=== PATIENT | male | born 1990 | race Caucasian/White ===

== ENCOUNTER 2020-09-25 20:47 | Emergency (ER) | payer SELFPAY ==
[~2020-09-25] VITALS: Ht 177.8 cm; Wt 75.0 kg
[2020-09-25] MEDS ORDERED: ONDANSETRON HCL 4MG/2ML INJ IV STA (22:48)
[2020-09-25] MEDS ORDERED: MORPHINE SULFATE 4 MG/ML CPJ (NOT FOR IM USE) IV STA (22:48)
[2020-09-25] MEDS ORDERED: SODIUM CHLORIDE 0.9% 1,000 ML IV ONE (23:00)
[2020-09-25 23:15] LABS: BASOPHILS % 0.5 % (0.0-2.0); EOSINOPHILS % 0.2 % (0.0-5.0); HEMATOCRIT. 46.1 % (42.0-52.0); HEMOGLOBIN. 16.3 g/dL (14.0-18.0); LYMPHOCYTES % 11.3 % (20.0-50.0); MEAN CORPUSCULAR VOLUME 90.6 fL (80.0-94.0); MEAN PLATELET VOLUME 8.3 fl (7.4-10.4); MONOCYTES % 6.6 % (2.0-8.0); NEUTROPHILS % 81.4 % (40.0-76.0); PLATELET 306 x1000/uL (130-400); RED BLOOD CELL COUNT 5.09 mill/uL (4.7-6.1); RED CELL DISTRIBUTION WIDTH 13.5 % (11.6-14.6)
[2020-09-25 23:20] LABS: CHLORIDE 103 mEq/L (98-107)
[2020-09-25 23:24] LABS: ETHANOL BLOOD < 10 mg/dL
[2020-09-26 00:37] LABS: *AMPHETAMINES SCREEN URINE NEGATIVE (NEGATIVE); *BARBITURATES SCREEN URINE NEGATIVE (NEGATIVE); *BENZODIAZEPINES SCREEN URINE NEGATIVE (NEGATIVE); *COCAINE SCREEN URINE PRESUMTIVE POSITIVE (NEGATIVE); CANNABINOID URINE SCREEN NEGATIVE (NEGATIVE); OPIATES URINE SCREEN PRESUMTIVE POSITIVE (NEGATIVE); PHENCYCLIDINE URINE SCREEN NEGATIVE (NEGATIVE)
[2020-09-26 00:38] LABS: METHADONE URINE SCREEN NEGATIVE (NEGATIVE)
[2020-09-26] MEDS ORDERED: IOHEXOL-350 100 ML BOTTLE ONE (02:17)
[2020-09-26 02:53] VITALS: BP 128/71
== END 2020-09-26 02:53 | disposition left against medical advice (07) ==
LOC: ER 20:47 → EDBEDREQTM 09-26 02:56 → EDBEDREQ 09-26 02:56 → CANBEDREQ 09-26 03:06
DX: R07.89 Other chest pain (principal); R11.2 Nausea with vomiting, unspecified; F17.290 Nicotine dependence, other tobacco product, uncomplicated
CPT/HCPCS: 36415; 71045; 71275; 80053; 80305; 80320; 83605; 83690; 83880; 84484; 85025; 85379; 93005; 96361; 96374; 96375; 99285; 99406; J2270; J2405; J7030; Q9967; G0480